=== PATIENT | female | born 1960 | race Caucasian/White ===

== ENCOUNTER 2022-09-05 09:11 | Day surgery (SDC) | payer BC ==
[2022-08-29 16:05] LABS: BASOPHILS # (AUTO) 0.1 X10'3 (0-0.2); BASOPHILS % (AUTO) 1.1 % (0-1); EOSINOPHILS # (AUTO) 0.1 X10'3 (0-0.9); EOSINOPHILS % (AUTO) 1.5 % (0-6); LYMPHOCYTES # (AUTO) 2.4 X10'3 (1.1-4.8); LYMPHOCYTES % (AUTO) 31.8 % (21-51); MEAN CORPUSCULAR HEMOGLOBIN 26.8 PG (27.0-31.0); MEAN CORPUSCULAR HGB CONC 33.3 g/dL (33.0-36.5); MEAN CORPUSCULAR VOLUME 80.6 FL (78-98); MEAN PLATELET VOLUME 8.2 FL (7.4-10.4); MONOCYTES # (AUTO) 0.5 X10'3 (0-0.9); MONOCYTES % (AUTO) 7.3 % (2-12); NEUTROPHILS # (AUTO) 4.4 X10'3 (1.8-7.7); NEUTROPHILS % (AUTO) 58.3 % (42-75); PRE OP HEMATOCRIT 42.6 % (35.0-45.0); PRE OP HEMOGLOBIN 14.2 g/dL (12.0-16.0); PRE OP PLATELET COUNT 308 X10'3 (140-440); RED BLOOD COUNT 5.28 X10'6 (4.20-5.60); RED CELL DISTRIBUTION WIDTH 13.4 % (11.5-14.5)
[2022-08-29 16:06] LABS: CLARITY,URINE SLIGHTLY CLOUDY (Clear); COLOR,URINE STRAW (Yellow); GLUCOSE, URINE NEGATIVE (Neg); KETONES,URINE NEGATIVE (Neg); LEUKOCYTE ESTERASE ,URINE TRACE (Neg); NITRITES, URINE NEGATIVE (Neg); OCCULT BLOOD,URINE MODERATE (Neg); PROTEIN,URINE NEGATIVE (Neg); UROBILINOGEN,URINE 0.2 E.U/dL (0.2-1.0)
[2022-08-29 16:07] LABS: UA COLLECTION TYPE CLN CATCH MIDSTREAM
[2022-08-29 16:20] LABS: BACTERIA,URINE FEW /HPF (Neg); MUCUS STRANDS MODERATE /LPF (Neg); RBC,URINE 0-2 /HPF (0-2); SQUAMOUS EPITHELIAL CELL,UR MODERATE /LPF (FEW); TRANSITIONAL EPI CELLS,URINE FEW /HPF
[2022-08-29 16:21] LABS: WBC,URINE 0-4 /HPF (0-4)
[2022-08-29 16:22] LABS: ALBUMIN/GLOBULIN RATIO 1.1 (1.1-1.5); ALKALINE PHOSPHATASE 128 IU/L (46-116); BLOOD UREA NITROGEN 17 MG/DL (7-18); BUN/CREATININE RATIO 20.7 (6.6-38.0); CALCIUM 9.5 MG/DL (8.5-10.1); CHLORIDE 102 MMOL/L (99-107); CREATININE 0.82 MG/DL (0.40-0.90); PRE OP ALT 30 U/L (30-65); PRE OP ANION GAP 10 (8-16); PRE OP AST 24 U/L (10-37); PRE OP BILIRUB, TOTAL 0.3 MG/DL (0.0-1.0); PRE OP GLUCOSE 98 MG/DL (70-104); PRE OP POTASSIUM 3.4 MMOL/L (3.4-5.1); PRE OP SODIUM 139 MMOL/L (135-145); TOTAL CARBON DIOXIDE 27.1 MMOL/L (24-32); TOTAL PROTEIN 7.5 G/DL (6.4-8.2); eGFR 70 ML/MIN
[~2022-09-05] VITALS: Ht 152.4 cm; Wt 80.1 kg
[2022-09-05] VITALS (9 sets, daily range): BP systolic 102–173; BP diastolic 59–86
[~2022-09-05 09:11] MED LIST: GABA-530 PO; OMEP20CA16 PO; ceFAZolin inj. 2,000 MG in dextrose 5%-water 100 ML IV ONE; famotidine 20mg tablet PO ONE; ringers solution, lacted 1,000 ML IV SCH
[2022-09-05] MEDS ORDERED: BUPIVAcaine 0.5% inj/PF 0 ML ONE (09:36)
[2022-09-05] MEDS ORDERED: bacitracin 15gm ointment TP ONE ×2 (09:36→10:51)
[2022-09-05] MEDS ORDERED: scopolamine 1mg/72 hr patch TD ONE (09:40)
[2022-09-05] MEDS ORDERED: fentaNYL/PF 50MCG/1 ML 2ML syringe ONE (09:52)
[2022-09-05] MEDS ORDERED: midazolam 1 mg/ML 2ml injection ONE (09:52)
[2022-09-05] MEDS ORDERED: cloNIDine hcl/PF 100mcg/ml inj ONE (09:55)
[2022-09-05] MEDS ORDERED: propofol inj 20 ML IV ONE ×7 (10:51)
[2022-09-05] MEDS ORDERED: 0.9 % SODIUM CHLORIDE 10 ML VIAL ONE ×2 (10:52)
[2022-09-05] MEDS ORDERED: ondansetron/PF 4mg/2ml inj ONE (10:52)
[2022-09-05] MEDS ORDERED: dexamethasone sod phosphate 4mg/ml inj. ONE (10:52)
[2022-09-05] MEDS ORDERED: ROPIVAcaine 0.5% (5mg/ml) 30ml vial ONE (10:52)
[2022-09-05] MEDS ORDERED: rocuronium 10mg/ml inj IV ONE (10:52)
[2022-09-05] MEDS ORDERED: LIDOcaine 2% (20mg/ml) 5ml vial ONE (10:52)
[2022-09-05] MEDS ORDERED: flumazenil 0.1 mg/ml inj. IV ONE (11:46)
--- NOTE | 2022-09-05 11:55 | NUR ---
Received from OR via stretcher, accompanied by Anesthesiologist and report given by Anesthesiologist. PATIENT WAKING UP, NO S/S OF PAIN, V/S WNL, SCD ON, 20G TO RUE, left leg with cast in place, toes are pink warm and dry good CMS. pt is non weight bearing. per anesthesia instructions to limit pain medications if possible due to pts severe nausea and vomiting history with anesthesia.
[2022-09-05] MEDS ORDERED: proCHLORperazine 10 MG/2 ml inj IV PRN (12:00)
[2022-09-05] MEDS ORDERED: hydrALAZINE 20mg/ml inj. IV PRN (12:00)
[2022-09-05] MEDS ORDERED: morphine 2 MG/ML inj. syringe IV PRN (12:00)
[2022-09-05] MEDS ORDERED: labetalol 20mg/4ml (5mg/ml) syringe IV PRN (12:00)
[2022-09-05] MEDS ORDERED: ringers solution, lacted 1,000 ML IV SCH (12:00)
[2022-09-05] MEDS ORDERED: meperidine/PF 25mg/ml syringe IV PRN ×3 (12:00)
[2022-09-05] MEDS ORDERED: morphine 4 MG/ML inj SYRINge IV PRN (12:00)
[2022-09-05] MEDS ORDERED: ondansetron/PF 4mg/2ml inj IV PRN (12:00)
[2022-09-05] MEDS ORDERED: acetaminophen 1,000mg/100ml IV 100 ML IV PRN (12:00)
--- NOTE | 2022-09-05 13:15 | NUR ---
Assisted pt getting dressed, instructions given, Pt verbalized understanding of non-weight bearing. SHE STATES THAT HER HAS HER CRUTCHES IN THE CAR. Dr Espitia also at bedside discussing post op care with pt. PATIENT A&OX4, DENIES PAIN, V/S WNL, SCD OFF, 20G IV D/C, LEFT LEG DRESSING AND CAST CDI PATIENT INSTRUCTED TO ICE AND ELEVATED RLE. I HAVE REVIEWED D/C INSTRUCTIONS WITH PATIENT SHE HAS VERBALIZED UNDERSTANDING. PATIENT D/C HOME WITH ALL BELONGINGS. PT TAKEN VIA WHEELCHAIR TO FRONT LOBBY WHERE WILL THREAD REELER HER HOME.
== END 2022-09-05 13:15 | disposition home or self-care (01) ==
LOC: PAS 09:11
PROVIDERS: ATTEND Podiatrist Foot & Ankle Surgery
DX: M76.62 Achilles tendinitis, left leg (principal); M77.32 Calcaneal spur, left foot; M19.072 Primary osteoarthritis, left ankle and foot; M21.6X2 Other acquired deformities of left foot; F41.9 Anxiety disorder, unspecified; M17.11 Unilateral primary osteoarthritis, right knee; G89.18 Other acute postprocedural pain; E66.9 Obesity, unspecified; Z68.33 Body mass index [BMI] 33.0-33.9, adult; Z88.5 Allergy status to narcotic agent; Z88.4 Allergy status to anesthetic agent; Z79.899 Other long term (current) drug therapy; Z98.890 Other specified postprocedural states; Z83.3 Family history of diabetes mellitus
CPT/HCPCS: 27654; 28119; 36415; 64445; 64447; 73600; 76000; 80053; 81001; 82948; 85025; 87088; A6222; C1713; J0690; J0735; J1100; J2250; J2405; J2704; J2795; J3010; J3490; J7030; J7060; J7120; Z7506; Z7508; Z7512; A4215; A4618; A6253; A6449; A7000; S0020